=== PATIENT | male | born 1950 | race Caucasian/White ===

== ENCOUNTER → 2017-08-05 | Outpatient (CLI) | payer MEDICARE, OTHER | END | disposition home or self-care (01) | LOC: KCIC CT 10:08 | DX: M54.12 Radiculopathy, cervical region (principal); M48.061 Spinal stenosis, lumbar region without neurogenic claudication; M25.78 Osteophyte, vertebrae | CPT/HCPCS: 72125; 72131 ==

== ENCOUNTER → 2017-09-04 | Day surgery (SDC) | payer MEDICARE, OTHER ==
[~2017-09-04] MED LIST: PROPOFOL 20 ML IV
[2017-09-04] MEDS: IV RINGERS,LACTATED 1000ML 1,000 ML IV ×2 (10:20)
== END | disposition home or self-care (01) ==
LOC: ENDOS 09:30
DX: K21.0 Gastro-esophageal reflux disease with esophagitis (principal); K22.2 Esophageal obstruction; E78.00 Pure hypercholesterolemia, unspecified; M19.90 Unspecified osteoarthritis, unspecified site; F41.9 Anxiety disorder, unspecified; F32.9 Major depressive disorder, single episode, unspecified; F17.200 Nicotine dependence, unspecified, uncomplicated; Z98.41 Cataract extraction status, right eye; Z98.42 Cataract extraction status, left eye; Z88.1 Allergy status to other antibiotic agents; Z86.69 Personal history of other diseases of the nervous system and sense organs
CPT/HCPCS: 43239; 88305; J2704

== ENCOUNTER → 2017-09-29 | Outpatient (CLI) | payer MEDICARE, OTHER | END | disposition home or self-care (01) | LOC: PNCL 09:26 | DX: M54.16 Radiculopathy, lumbar region (principal); I10 Essential (primary) hypertension; M17.0 Bilateral primary osteoarthritis of knee | CPT/HCPCS: G0463 ==

== ENCOUNTER → 2017-10-02 | Outpatient (CLI) | payer MEDICARE, OTHER | END | disposition home or self-care (01) | LOC: KCIC 08:48 | DX: K21.9 Gastro-esophageal reflux disease without esophagitis (principal); K22.4 Dyskinesia of esophagus; K44.9 Diaphragmatic hernia without obstruction or gangrene | CPT/HCPCS: 74220 ==

== ENCOUNTER → 2017-10-20 | Outpatient (CLI) | payer MEDICARE, OTHER ==
[~2017-10-20] MED LIST changes: +IOHEXOL 180 MG/ML 10 ML VIAL.; -PROPOFOL 20 ML IV; +methylPREDNISolone ACETATE 40 MG/ML VIAL.; +methylPREDNISolone ACETATE 80 MG/ML VIAL.
[2017-10-20 10:46] LABS: PROTHROMBIN TIME PATIENT 13.1 SEC (11.7-14.0)
== END ==
LOC: PNCL 10:37
DX: M51.16 Intervertebral disc disorders with radiculopathy, lumbar region (principal); M48.061 Spinal stenosis, lumbar region without neurogenic claudication; Z79.01 Long term (current) use of anticoagulants
CPT/HCPCS: 36415; 62323; 85610; J1030; J1040; Q9965

== ENCOUNTER → 2017-11-17 | Outpatient (CLI) | payer MEDICARE, OTHER ==
[2017-11-17] MEDS: BARIUM SULFATE 40% (APPLE) 148 GM PWD. PO (09:00)
== END | disposition home or self-care (01) ==
LOC: RAD 10:01
DX: R13.10 Dysphagia, unspecified (principal)
CPT/HCPCS: 74230; 92526-GN; 92611-GN

== ENCOUNTER → 2018-01-20 | Outpatient (CLI) | payer MEDICARE, OTHER | END | disposition home or self-care (01) | LOC: KCIC US 09:30 | DX: I71.4 Abdominal aortic aneurysm, without rupture (principal) | CPT/HCPCS: 76770 ==

== ENCOUNTER 2018-06-01 09:33 | Emergency (ER) | payer MEDICARE ==
[~2018-06-01] VITALS: Ht 175.3 cm; Wt 80.7 kg
[~2018-06-01 09:33] MED LIST changes: +ALPR0.25 PO; +AMLO1CAP PO; +AMLO5TAB7 PO; +BENA20TA4 PO; +CALC200T3 PO; +CELE200C PO; +CHOL500016 PO; +CLOP75TA57 PO; +DILT180C2 PO; +DULO60CA6 PO; +ERGO50007 PO; +FENO160T PO; +FINA5TAB PO; +FINA5TAB4 PO; +FOLI1TAB16 PO; +HYDR12.53 PO; +HYDR1TAB12 PO; -IOHEXOL 180 MG/ML 10 ML VIAL.; +LISI-334 PO; +MORP30TA13 PO; +MORP30TA83 PO; +PANT40TA5 PO; +PREG75CA PO; +RISE35TA3 PO; +SILD100T PO; +SIMV20TA3 PO; +SIMV40TA3 PO; +TAMS0.4C97 PO; +TEST100V2 IM; +ZOLP10TA PO; +[UNRECOGNIZED DRUG - CODE] IM; -methylPREDNISolone ACETATE 40 MG/ML VIAL.; -methylPREDNISolone ACETATE 80 MG/ML VIAL.
[2018-06-01] MEDS ORDERED: ONDANSETRON PF 4 MG/2 ML VIAL. IV ONE (10:00)
[2018-06-01] MEDS ORDERED: fentaNYL PF VIAL 100 MCG/2 ML VIAL IV ONE (10:00)
[2018-06-01 10:08] LABS: BASO % 0 % (0-3); EOS # 0.1 x10^3/uL (0.0-0.7); EOS % 1 % (0-3); HEMATOCRIT 51.3 % (39.0-53.0); HEMOGLOBIN 17.8 g/dL (13.0-17.5); LYMPH # 1.2 x10^3/uL (1.0-4.8); LYMPH % 11 % (24-48); MEAN CORPUSCULAR HEMOGLOBIN 30 pg (25-35); MEAN CORPUSCULAR HGB CONC 35 g/dL (31-37); MEAN CORPUSCULAR VOLUME 88 fL (79-100); MONO # 0.7 x10^3/uL (0.0-1.1); MONO % 7 % (0-9); NEUT # 8.9 x10^3uL (1.8-7.7); NEUT % 81 % (31-73); PLATELET COUNT 239 x10^3/uL (140-400); RED BLOOD COUNT 5.85 x10^6/uL (4.30-5.70); RED CELL DISTRIBUTION WIDTH 14.1 % (11.5-14.5); WHITE BLOOD COUNT 10.9 x10^3/uL (4.0-11.0)
[2018-06-01 10:14] LABS: PROTHROMBIN TIME PATIENT 32.4 SEC (11.7-14.0)
[2018-06-01 10:17] LABS: CALCIUM 9.7 mg/dL (8.5-10.1); GFR 74.1; POTASSIUM 3.9 mmol/L (3.5-5.1)
[2018-06-01 10:23] LABS: ALBUMIN 3.9 g/dL (3.4-5.0); TOTAL BILIRUBIN 1.4 mg/dL (0.2-1.0); TOTAL PROTEIN 7.5 g/dL (6.4-8.2)
[2018-06-01] MEDS ORDERED: IV NORMAL SALINE 1000ML BAG 1,000 ML IV ONE (10:30)
[2018-06-01] MEDS ORDERED: HYDROmorphone 2 MG/ML VIAL IV ONE (10:30)
[2018-06-01] MEDS ORDERED: IOHEXOL 300 MG/ML 100ML VIAL. IV ONE (11:00)
[2018-06-01] MEDS ORDERED: CONTRAST GIVEN. MC PRN (11:00)
--- NOTE | 2018-06-01 11:05 | PHYS DOC ---
Past Medical History Past Medical History: High Cholesterol, Heart Disease, Hypertension, Migraines , Other Additional Past Medical Histor: Abd.hernia,Bone spurs in back. Past Surgical History: Pacemaker, Other Additional Past Surgical Histo: Plate in L)side of neck. Additional Information: <1PPD. "Quit off and on." Alcohol Use: Rarely Drug Use: None Adult General Chief Complaint Chief Complaint: ABDOMINAL PAIN HPI HPI Patient is a 68 year old male who presents with abdominal pain. Patient had what he describes to be some "twinges" of pain in the right lower quadrant last night prior to going to bed. When he awoke this morning however he had severe pain in the right lower quadrant. He last ate food last evening around 5 PM. He did have normal bowel movement earlier today. No fever. No vomiting or nausea. Patient does not have a history of abdominal surgeries. He does however take Coumadin due to a remote infarction type CVA. Review of Systems Review of Systems Constitutional: Denies fever or chills Eyes: Denies change in visual acuity HENT: Denies nasal congestion Respiratory: Denies cough or shortness of breath Cardiovascular: No additional information not addressed in HPI GI: as documented above : Denies hematuria Musculoskeletal: Denies back pain Integument: Denies rash Neurologic: Denies headache All other systems were reviewed and found to be within normal limits, except as documented in this note. Current Medications Current Medications Current Medications Medications (Trade) Dose Ordered Sig/Alin Start Time Stop Time Status Last Admin Dose Admin Fentanyl Citrate (Fentanyl 2ml Vial) 75 mcg 1X ONCE 06/01/18 10:00 06/01/18 10:01 DC 06/01/18 10:12 75 MCG Hydromorphone HCl (Dilaudid) 1 mg 1X ONCE 06/01/18 10:30 06/01/18 10:34 DC 06/01/18 10:32 1 MG Info (CONTRAST GIVEN -- Rx MONITORING) 1 each PRN DAILY PRN 06/01/18 11:00 06/01/18 13:09 DC Iohexol (Omnipaque 300 Mg/ml) 75 ml 1X ONCE 06/01/18 11:00 06/01/18 11:01 DC 06/01/18 11:20 75 ML Ondansetron HCl (Zofran) 4 mg 1X ONCE 06/01/18 10:00 06/01/18 10:01 DC 06/01/18 10:10 4 MG Sodium Chloride 1,000 ml @ 1,000 mls/hr 1X ONCE 06/01/18 10:30 06/01/18 11:29 DC 06/01/18 10:46 1,000 MLS/HR Allergies Allergies Allergies Coded Allergies Type Severity Reaction Last Updated Verified Latex, Natural Rubber Allergy Intermediate Welts 09/29/17 Yes vancomycin Allergy Unknown 09/04/17 Yes Physical Exam Physical Exam Constitutional: Well developed, well nourished, moderate distress 2/2 pain HENT: Normocephalic, atraumatic, bilateral external ears normal, oropharynx moist Eyes: PERRLA, EOMI, conjunctiva normal Neck: Normal range of motion, no tenderness Cardiovascular:Heart rate regular rhythm, no murmur Lungs & Thorax: Bilateral breath sounds clear to auscultation Abdomen: abdomen is exquisitely TTP over right LQ with guarding and rebound present, mild distention Skin: Warm, dry, no erythema. Back: No tenderness Extremities: No edema Neurologic: Alert and oriented X 3 Psychologic: Affect normal Current Patient Data Vital Signs Vital Signs Date Time Temp Pulse Resp B/P (MAP) Pulse Ox O2 Delivery O2 Flow Rate FiO2 06/01/18 13:00 68 18 124/58 (80) 97 Room Air 06/01/18 09:42 97.4 97.4 Lab Values Laboratory Tests Test 06/01/18 09:55 06/01/18 11:15 White Blood Count 10.9 x10^3/uL (4.0-11.0) Red Blood Count 5.85 x10^6/uL (4.30-5.70) H Hemoglobin 17.8 g/dL (13.0-17.5) H Hematocrit 51.3 % (39.0-53.0) Mean Corpuscular Volume 88 fL (79-100) Mean Corpuscular Hemoglobin 30 pg (25-35) Mean Corpuscular Hemoglobin Concent 35 g/dL (31-37) Red Cell Distribution Width 14.1 % (11.5-14.5) Platelet Count 239 x10^3/uL (140-400) Neutrophils (%) (Auto) 81 % (31-73) H Lymphocytes (%) (Auto) 11 % (24-48) L Monocytes (%) (Auto) 7 % (0-9) Eosinophils (%) (Auto) 1 % (0-3) Basophils (%) (Auto) 0 % (0-3) Neutrophils # (Auto) 8.9 x10^3uL (1.8-7.7) H Lymphocytes # (Auto) 1.2 x10^3/uL (1.0-4.8) Monocytes # (Auto) 0.7 x10^3/uL (0.0-1.1) Eosinophils # (Auto) 0.1 x10^3/uL (0.0-0.7) Basophils # (Auto) 0.0 x10^3/uL (0.0-0.2) Prothrombin Time 32.4 SEC (11.7-14.0) H Prothrombin Time INR 3.3 (0.8-1.1) H PTT 55 SEC (24-38) H Sodium Level 140 mmol/L (136-145) Potassium Level 3.9 mmol/L (3.5-5.1) Chloride Level 102 mmol/L (98-107) Carbon Dioxide Level 28 mmol/L (21-32) Anion Gap 10 (6-14) Blood Urea Nitrogen 12 mg/dL (8-26) Creatinine 1.0 mg/dL (0.7-1.3) Estimated GFR (Cockcroft-Gault) 74.1 Glucose Level 128 mg/dL (70-99) H Lactic Acid Level 1.5 mmol/L (0.4-2.0) Calcium Level 9.7 mg/dL (8.5-10.1) Total Bilirubin 1.4 mg/dL (0.2-1.0) H Direct Bilirubin 1.0 mg/dL (0.0-0.2) H Aspartate Amino Transferase (AST) 60 U/L (15-37) H Alanine Aminotransferase (ALT) 50 U/L (16-63) Alkaline Phosphatase 63 U/L (46-116) Total Protein 7.5 g/dL (6.4-8.2) Albumin 3.9 g/dL (3.4-5.0) Lipase 190 U/L (73-393) Urine Collection Type Unknown Urine Color Yellow Urine Clarity Clear Urine pH 6.0 Urine Specific [place] >=1.030 Urine Protein Negative mg/dL (NEG-TRACE) Urine Glucose (UA) Negative mg/dL (NEG) Urine Ketones (Stick) Negative mg/dL (NEG) Urine Blood Negative (NEG) Urine Nitrite Negative (NEG) Urine Bilirubin Negative (NEG) Urine Urobilinogen Dipstick 2.0 mg/dL (0.2 mg/dL) Urine Leukocyte Esterase Negative (NEG) Urine RBC 0 /HPF (0-2) Urine WBC 0 /HPF (0-4) Urine Bacteria 0 /HPF (0-FEW) Urine Hyaline Casts Occasional /HPF Laboratory Tests 06/01/18 09:55 Laboratory Tests 06/01/18 09:55 EKG EKG [] Radiology/Procedures Radiology/Procedures CT abd pelvis: FINDINGS: Heart size is normal without significant pericardial effusion. Partial visualization of a subclavian cardiac pacer lead. Visualized lung bases are clear. Liver unremarkable apart from a few punctate calcified granulomas. Mild dilatation of the gallbladder measuring 4.3 cm without wall thickening or radiopaque cholelithiasis. Spleen normal in size with a few punctate calcified granulomas. Adrenal glands, pancreas and kidneys are unremarkable apart from a few subcentimeter left renal hypodensities which are too small to definitively characterize, though stability suggest benign cysts. No hydronephrosis. There is no significant change in a small left projecting saccular aneurysm of the infrarenal abdominal aorta. Mild aortoiliac calcified plaque. Major portal veins are patent. No retroperitoneal or mesenteric lymphadenopathy. Appendix is normal in appearance. No abdominal free fluid. No pneumoperitoneum. Mildly distended and unopacified urinary bladder, prostate and seminal vesicles are unremarkable. No iliac or inguinal lymphadenopathy. There are no destructive osseous lesions. Multilevel lumbar spondylosis with large marginal osteophyte formation. Mild bilateral hip osteoarthritis. IMPRESSION: 1. No appendicitis or bowel obstruction. 2. Mild dilatation of the gallbladder without radiopaque cholelithiasis. Clinical correlation is recommended. 3. 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 Course & Med Decision Making Course & Med Decision Making Pertinent Labs and Imaging studies reviewed. (See chart for details) Patient is seen and examined on arrival to his room. He does appear to be uncomfortable. His abdominal exam is concerning for likely surgical pathology. Suspicious for appendicitis. Labs are ordered. We'll check coags. The patient is chronically anticoagulated. 11:04: Patient is reevaluated. He was initially given a dose of fentanyl but states that medication did not help. After that, he was given 1 mg of Dilaudid which did relieve his pain symptoms. Currently, he does not desire additional pain medications. CT scan is pending. 12:30: Patient currently pain free. No acute findings on CT scan to explain his pain symptoms. UA completed with no blood. Repeat examination reveals soft , non-tender abdominal exam including the Right LQ. No right UQ tenderness. Symptoms entirely resolved. 13:00: No acute findings on the workup today. The patient remains asymptomatic. Repeat examination of the abdomen reveals a normal abdominal exam. Patient is discharged to home. Uncertain cause for his symptoms today. He is advised to come back to the ER for any new or worsening symptoms. Otherwise, follow up with his primary care doctor. Dragon Disclaimer Dragon Disclaimer This electronic medical record was generated, in whole or in part, using a voice recognition dictation system. Departure Departure Referrals: DALIA BUSH MD (PCP) NIYA MAC DO Jun 01, 2018 11:04
--- NOTE | 2018-06-01 11:51 | RAD ---
CT abdomen and pelvis with contrast 06/01/2018 Clinical indications: Abdominal pain, right lower quadrant. COMPARISON: CTA abdomen and pelvis 08/10/2017 TECHNIQUE: Multiple CT images of the abdomen and pelvis were obtained following the intravenous and ministration of 75 mL Omnipaque 300. *One or more of the following individualized dose reduction techniques were utilized for this examination: 1. Automated exposure control. 2. Adjustment of the mA and/or kV according to patient size. 3. Use of iterative reconstruction technique. FINDINGS: Heart size is normal without significant pericardial effusion. Partial visualization of a subclavian cardiac pacer lead. Visualized lung bases are clear. Liver unremarkable apart from a few punctate calcified granulomas. Mild dilatation of the gallbladder measuring 4.3 cm without wall thickening or radiopaque cholelithiasis. Spleen normal in size with a few punctate calcified granulomas. Adrenal glands, pancreas and kidneys are unremarkable apart from a few subcentimeter left renal hypodensities which are too small to definitively characterize, though stability suggest benign cysts. No hydronephrosis. There is no significant change in a small left projecting saccular aneurysm of the infrarenal abdominal aorta. Mild aortoiliac calcified plaque. Major portal veins are patent. No retroperitoneal or mesenteric lymphadenopathy. Appendix is normal in appearance. No abdominal free fluid. No pneumoperitoneum. Mildly distended and unopacified urinary bladder, prostate and seminal vesicles are unremarkable. No iliac or inguinal lymphadenopathy. There are no destructive osseous lesions. Multilevel lumbar spondylosis with large marginal osteophyte formation. Mild bilateral hip osteoarthritis. IMPRESSION: 1. No appendicitis or bowel obstruction. 2. Mild dilatation of the gallbladder without radiopaque cholelithiasis. Clinical correlation is recommended. 3. 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 Electronically signed by: Shankar Michel MD (06/01/2018 11:47 AM) [id number]
[2018-06-01 12:31] LABS: BILIRUBIN,URINE NEGATIVE (NEG); CLARITY,URINE CLEAR; COLOR,URINE YELLOW; NITRITE,URINE NEGATIVE (NEG); PROTEIN,URINE NEGATIVE (NEG-TRACE)
[2018-06-01 12:41] LABS: BACTERIA,URINE 0 /HPF (0-FEW); HYALINE CASTS, URINE OCCASIONAL /HPF; RBC,URINE 0 /HPF (0-2); WBC,URINE 0 /HPF (0-4)
[2018-06-01 13:00] VITALS: BP 124/58
== END 2018-06-01 13:09 | disposition home or self-care (01) ==
LOC: ER 09:33
DX: R10.31 Right lower quadrant pain (principal); E78.00 Pure hypercholesterolemia, unspecified; G43.909 Migraine, unspecified, not intractable, without status migrainosus; F17.200 Nicotine dependence, unspecified, uncomplicated; Z95.0 Presence of cardiac pacemaker; Z88.1 Allergy status to other antibiotic agents; Z91.040 Latex allergy status; Z98.890 Other specified postprocedural states
CPT/HCPCS: 36415; 74177; 80048; 80076; 81001; 83605; 83690; 85025; 85610; 85730; 96374; 96375; 99285; J1170; J2405; J3010; J7030; Q9967